=== PATIENT | female | born 1945 | race African-American/Black ===

== ENCOUNTER 2021-04-01 09:23 | Inpatient (IN) | payer MEDICARE, MEDICAID ==
[~2021-04-01] VITALS: Ht 157.5 cm; Wt 91.9 kg
[2021-04-01] MEDS ORDERED: CEFTRIAXONE 1 G PREMIX 50 ML IV ONE (10:30)
[2021-04-01] MEDS ORDERED: SODIUM CHLORIDE 0.9% 1000ML BAG (SEPSIS BOLUS) IV ONE (10:30)
[2021-04-01 11:07] LABS: BASOPHILS % 0.3 % (0.0-2.0); EOSINOPHILS % 0.4 % (0.0-5.0); HEMATOCRIT. 40.8 % (36.0-48.0); LYMPHOCYTES % 9.4 % (20.0-50.0); MEAN CORPUSCULAR HEMOGLOBIN 29.4 pg (28.0-32.0); MEAN CORPUSCULAR VOLUME 85.9 fL (81.0-99.0); MEAN PLATELET VOLUME 6.9 fl (7.4-10.4); MONOCYTES % 5.8 % (2.0-8.0); NEUTROPHILS % 84.1 % (40.0-76.0); PLATELET 506 x1000/uL (130-400); RED BLOOD CELL COUNT 4.75 mill/uL (4.2-5.4); RED CELL DISTRIBUTION WIDTH 14.7 % (11.6-14.6)
[2021-04-01 11:14] LABS: CHLORIDE 109 mEq/L (98-107)
[2021-04-01 11:17] LABS: INR 1.1; PROTHROMBIN TIME 11.5 sec (9.6-11.0)
[2021-04-01 16:18] LABS: CLARITY URINE CLEAR (CLEAR); COLOR URINE YELLOW (YELLOW); KETONES URINE NEGATIVE (NEGATIVE); LEUKOCYTE ESTERASE URINE NEGATIVE (NEGATIVE); NITRITE URINE NEGATIVE (NEGATIVE); OCCULT BLOOD URINE NEGATIVE (NEGATIVE); PH URINE 6.5 (4.5-8.0); PROTEIN URINE 1+ (NEGATIVE); SPECIFIC GRAVITY URINE 1.021 (1.005-1.030)
[2021-04-01] MEDS ORDERED: ACETAMINOPHEN 325MG TABLET PO PRN ×2 (18:15)
[2021-04-01] MEDS ORDERED: DOCUSATE SODIUM 100MG CAPSULE PO PRN (18:15)
[2021-04-01] MEDS ORDERED: CLONIDINE 0.1MG TABLET PO PRN (18:15)
[2021-04-01] MEDS ORDERED: LORAZEPAM 0.5MG TABLET PO PRN (18:15)
[2021-04-01] MEDS ORDERED: ONDANSETRON HCL 4MG/2ML INJ IV PRN (18:15)
[2021-04-01] MEDS ORDERED: NALOXONE HCL 0.4MG/ML VIAL IV PRN (18:15)
[2021-04-01] MEDS ORDERED: IPRATROPIUM/ALBUTEROL 0.5-3(2.5)MG/3ML NEB HHN PRN (18:15)
[2021-04-01] MEDS ORDERED: HYDR-4009 MT (22:47)
[2021-04-01] MEDS ORDERED: AMLO5TAB88 PO (22:47)
[2021-04-01] MEDS ORDERED: SIMV-46 PO (22:47)
[2021-04-01] MEDS ORDERED: LISI10TA26 PO (22:47)
[2021-04-01] MEDS ORDERED: ASPI-1497 MT (22:47)
[2021-04-01] MEDS ORDERED: LINA5TAB PO (22:47)
[2021-04-01] MEDS ORDERED: CLON0.1T PO (22:47)
[2021-04-01 22:55] VITALS: BP 127/62
[2021-04-01] MEDS ORDERED: PNEUMOCOCCAL 23-VAL P-SAC VAC 0.5 ML IM ONE (23:15)
[2021-04-01] MEDS ORDERED: CLON0.2T PO (23:17)
[2021-04-01] MEDS: HYDROCODONE/ACETAMINOPHEN 5/325MG TABLET PO PRN (23:34)
[2021-04-02] VITALS: BP 113/56
[2021-04-02 04:00] VITALS: BP 110/47
[2021-04-02 08:00] VITALS: BP 122/56
[2021-04-02 12:00] VITALS: BP 134/60
[2021-04-02] MEDS: ASPIRIN 81MG EC TABLET PO SCH (13:34)
[2021-04-02] MEDS: LINAGLIPTIN 5MG TABLET PO SCH (15:36)
[2021-04-02 16:00] VITALS: BP 98/51
[2021-04-02] MEDS: HYDROCODONE/ACETAMINOPHEN 5/325MG TABLET PO PRN ×2 (16:43→21:34)
[2021-04-02] MEDS: BLOOD SUGAR DIAGNOSTIC STRIP TEST SCH ×2 (16:46→20:41)
[2021-04-02 18:50] LABS: *AMPHETAMINES SCREEN URINE NEGATIVE (NEGATIVE); *BARBITURATES SCREEN URINE NEGATIVE (NEGATIVE)
[2021-04-02 18:51] LABS: *BENZODIAZEPINES SCREEN URINE NEGATIVE (NEGATIVE); *COCAINE SCREEN URINE PRESUMTIVE POSITIVE (NEGATIVE); CANNABINOID URINE SCREEN PRESUMTIVE POSITIVE (NEGATIVE); METHADONE URINE SCREEN NEGATIVE (NEGATIVE); OPIATES URINE SCREEN PRESUMTIVE POSITIVE (NEGATIVE); PHENCYCLIDINE URINE SCREEN NEGATIVE (NEGATIVE)
[2021-04-02 20:00] VITALS: BP 106/77
[2021-04-02] MEDS ORDERED: ATORVASTATIN CALCIUM 40MG TABLET PO SCH (21:00)
[2021-04-03] VITALS: BP 128/93
[2021-04-03 04:00] VITALS: BP 130/88
[2021-04-03] MEDS: BLOOD SUGAR DIAGNOSTIC STRIP TEST SCH ×2 (05:58→11:53)
[2021-04-03 06:56] LABS: CHLORIDE 112 mEq/L (98-107)
[2021-04-03 07:04] LABS: LDL CHOLESTEROL 50 mg/dL (5-100)
[2021-04-03 07:05] LABS: HDL CHOLESTEROL 57 mg/dL (40-59)
[2021-04-03 07:07] LABS: BASOPHILS % 0.8 % (0.0-2.0); EOSINOPHILS % 1.5 % (0.0-5.0); HEMATOCRIT. 39.3 % (36.0-48.0); HEMOGLOBIN. 13.5 g/dL (12.0-16.0); MEAN CORPUSCULAR HEMOGLOBIN 29.4 pg (28.0-32.0); MEAN CORPUSCULAR VOLUME 85.5 fL (81.0-99.0); MEAN PLATELET VOLUME 7.2 fl (7.4-10.4); MONOCYTES % 7.3 % (2.0-8.0); NEUTROPHILS % 64.4 % (40.0-76.0); PLATELET 442 x1000/uL (130-400); RED CELL DISTRIBUTION WIDTH 14.8 % (11.6-14.6)
[2021-04-03 08:00] VITALS: BP 128/77
[2021-04-03] MEDS: ASPIRIN 81MG EC TABLET PO SCH (08:36)
[2021-04-03] MEDS: LINAGLIPTIN 5MG TABLET PO SCH (08:36)
[2021-04-03] MEDS ORDERED: KEPP500 MT (11:45)
[2021-04-03 12:00] VITALS: BP 112/59
[2021-04-03 13:58] VITALS: BP 113/53
== END 2021-04-03 14:30 | disposition home health service (06) | DRG 74 ==
LOC: ER 09:50 → 7EST 15:11 → EDBEDREQ 15:15 → EDBEDREQSVC 15:15 → ENRESERV 20:32
PROVIDERS: ADMIT Internal Medicine; ATTEND Internal Medicine
DX: G90.8 Other disorders of autonomic nervous system (principal); E87.2 Acidosis; I31.3 Pericardial effusion (noninflammatory); R65.10 Systemic inflammatory response syndrome (SIRS) of non-infectious origin without acute organ dysfunction; G51.0 Bell's palsy; I10 Essential (primary) hypertension; E87.6 Hypokalemia; R56.9 Unspecified convulsions; E78.5 Hyperlipidemia, unspecified; E11.9 Type 2 diabetes mellitus without complications; F14.90 Cocaine use, unspecified, uncomplicated; F12.90 Cannabis use, unspecified, uncomplicated; Z79.899 Other long term (current) drug therapy; Z79.82 Long term (current) use of aspirin; Z79.84 Long term (current) use of oral hypoglycemic drugs; Z71.51 Drug abuse counseling and surveillance of drug abuser
CPT/HCPCS: 36415; 70551; 71045; 80048; 80053; 80061; 80305; 81003; 82607; 82746; 82962; 83036; 83605; 84145; 84443; 84484; 85025; 85379; 90732; 93005; 93306; 99285; J0696; J7030